=== PATIENT | male | born 1955 | race American Indian/Alaskan Native ===

== ENCOUNTER 2021-07-12 12:35 | Emergency (ER) | payer SELFPAY ==
[2021-07-12] MEDS ORDERED: cloNIDine 0.2 MG TAB PO ONE (13:57)
[2021-07-12 14:04] LABS: Basophils % (Auto) 0.4 % (0.0-1.8); Eosinophils # (Auto) 0.3 K/mm3 (0.0-0.4); Eosinophils % (Auto) 4.1 % (0.0-4.3); Hematocrit 41.7 % (35.5-45.6); Hemoglobin 14.2 gm/dl (11.8-15.2); Lymphocytes # (Auto) 2.1 K/mm3 (1.2-5.4); Lymphocytes % (Auto) 29.5 % (13.4-35.0); Mean Corpuscular HGB Conc 34 % (32-34); Mean Corpuscular Volume 96 fl (84-94); Monocytes # (Auto) 0.7 K/mm3 (0.0-0.8); Monocytes % (Auto) 9.9 % (0.0-7.3); Platelet Count 198 K/mm3 (140-440); Red Blood Count 4.34 M/mm3 (3.65-5.03); Red Cell Distribution Width 14.2 % (13.2-15.2)
--- NOTE | 2021-07-12 14:15 | Emergency Department Report ---
HPI - General Chief Complaint: Medical Clearance Time Seen by Provider: 07/12/21 13:57 - HPI HPI: MSE 6 The patient is a 65-year-old male present with a chief complaint of medical clearance. Patient was sent from [facility] for medical clearance to go to [facility]. [place] reports memory issues and hypertension and request a CT scan of the brain for "possible dementia." The patient currently denies having any complaints stating "I feel fine." Patient denies suicidal homicidal ideation. Patient denies auditory visual hallucinations. Patient states she has a history of hypertension but has not been on medication for years ED Past Medical Hx - Past Medical History Hx Hypertension: Yes - Surgical History Additional Surgical History: [place] tooth - Family History Family history: no significant - Social History Smoking Status: Current Every Day Smoker (1/2 pack/day) Substance Use Type: None (Denies illicit drug use) - Medications Home Medications: Home Medications Medication Instructions Recorded Confirmed Last Taken Type amLODIPine 5 mg PO DAILY #90 tab 07/12/21 Unknown Rx ED Review of Systems ROS: Stated complaint: MEDICAL CLEARENCE Other details as noted in HPI Constitutional: no symptoms reported Eyes: denies: eye pain ENT: denies: throat pain Respiratory: no symptoms reported Cardiovascular: denies: chest pain Endocrine: no symptoms reported Gastrointestinal: denies: abdominal pain Genitourinary: denies: dysuria Musculoskeletal: denies: back pain Neurological: denies: headache Physical Exam - Physical Exam Vital Signs: Vital Signs 07/12/21 13:10 Temperature 98.0 F Pulse Rate 95 H Respiratory 18 Rate Blood Pressure 212/119 O2 Sat by Pulse 96 Oximetry Physical Exam: GENERAL: The patient is well-developed well-nourished male sitting in chair not appearing to be in acute distress. [] HEENT: Normocephalic. Atraumatic. Extraocular motions are intact. Patient has moist mucous membranes. NECK: Supple. Trachea midline CHEST/LUNGS: Clear to auscultation. There is no respiratory distress noted. HEART/CARDIOVASCULAR: Regular. There is no tachycardia. There is no gallop rub or murmur. ABDOMEN: Abdomen is soft, nontender. Patient has normal bowel sounds. There is no abdominal distention. SKIN: There is no rash. There is no edema. There is no diaphoresis. NEURO: The patient is awake, alert, and oriented. The patient is cooperative. The patient has no focal neurologic deficits. The patient has normal speech. Cranial nerves II through XII grossly intact. GCS 15 MUSCULOSKELETAL:There is no evidence of acute injury. ED Course Vital Signs 07/12/21 13:10 Temperature 98.0 F Pulse Rate 95 H Respiratory 18 Rate Blood Pressure 212/119 O2 Sat by Pulse 96 Oximetry - Reevaluation(s) Reevaluation #1: 07/12/21 18:47 Blood pressure improved to systolic in the 160s ED Medical Decision Making - Lab Data Result diagrams: 07/12/21 13:34 07/12/21 13:34 - Radiology Data Radiology results: report reviewed (CT head), image reviewed (CT head) [facility] [address] [place] [address] Cat Scan Report Signed Patient: AMARJIT RIOS MR#: [id number] : 1955 Acct:[id number] Age/Sex: 65 / M ADM Date: 07/12/21 Loc: ED Attending Dr: Ordering Physician: THERESA CAMARA MD Date of Service: 07/12/21 Procedure(s): CT head/brain wo con Accession Number(s): [id number] cc: THERESA CAMARA MD CT HEAD WITHOUT CONTRAST INDICATION / CLINICAL INFORMATION: Hypertension," memory issues ". TECHNIQUE: Axial imaging performed from the skull apex through the skull base without the use of contrast. Sagittal and coronal reformatted images. All CT scans at this location are performed using CT dose reduction for ALARA by means of automated exposure control. COMPARISON: None available. FINDINGS: CEREBRAL PARENCHYMA: Mild cortical volume loss and mild chronic microangiopathy in the white matter is noted. 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 No acute parenchymal abnormality is detected. HEMORRHAGE: None. EXTRA-AXIAL SPACES: Normal in size and morphology for the patient's age. VENTRICULAR SYSTEM: Normal in size and morphology for the patient's age. MIDLINE SHIFT OR HERNIATION: None. CEREBELLUM / BRAINSTEM: No significant abnormality. CALVARIUM: No significant abnormality. ORBITS: Normal as visualized. PARANASAL SINUSES / MASTOID AIR CELLS: Normal as visualized. SOFT TISSUES of HEAD: No significant abnormality. ADDITIONAL FINDINGS: None. IMPRESSION: No acute intracranial abnormality. Chronic findings as described above. Signer Name: Geovanni Osborne Jr, MD Signed: 07/12/2021 2:33 PM Workstation Name: [id number] Transcribed By: TTR Dictated By: GEOVANNI OSBORNE JR, MD Electronically Authenticated By: GEOVANNI OSBORNE JR, MD Signed Date/Time: 07/12/211432 DD/ 31 TD/TT: - Differential Diagnosis Uncontrolled hypertension, intracranial mass, ICH, dementia Critical care attestation.: If time is entered above; I have spent that time in minutes in the direct care of this critically ill patient, excluding procedure time. ED Disposition Clinical Impression: Hypertension Disposition: HOME / SELF CARE / HOMELESS Is pt being admited?: No Does the pt Need Aspirin: No Instructions: Hypertension (ED) Additional Instructions: Dr. Seth Huber MD [address] [place], [place] [id number] [facility] [address] [phone] Dr. Froilan Hoyos MD [address] [id number] Mayte Navarro MD [address], [place], [place] [id number] [facility] [address] , [address], [place], [place] [id number] Professional and Agency Contacts To help [facility] Cr[facility](05/11) [place] Crisis Line: Suicide Prevention Line: Crisis Text Line: Text START to 698773 Emergency: 911 Outpatient [facility] Behavior[facility] Resources: [place]: [facility] [address] [place], [place] [address] [facility] - [address] [address] [facility] - [address] [place] [address] Saturday thru Saturday - 8am - 5pm [facility] Service Address: [address] [place] [address] Dr, [place] [address] [place]: [facility] Address: [address], [place], [place] Saturday thru Saturday- 7am-2pm [facility] Address: [address], [place] [address] Saturday thru Saturday: 8:30AM-5PM Prescriptions: amLODIPine 5 mg PO DAILY #90 tab Referrals: PRIMARY CAREMD [Primary Care Provider] - 3-5 Days SETH HUBER MD [Referring] - 3-5 Days Time of Disposition: 18:48
--- NOTE | 2021-07-12 14:37 | Cat Scan Report ---
CT HEAD WITHOUT CONTRAST INDICATION / CLINICAL INFORMATION: Hypertension," memory issues ". TECHNIQUE: Axial imaging performed from the skull apex through the skull base without the use of cont rast. Sagittal and coronal reformatted images. All CT scans at this location are performed using CT dose reduction for ALARA by means of automated exposure control. COMPARISON: None available. FINDINGS: CEREBRAL PARENCHYMA: Mild cortical volume loss and mild chronic microangiopathy in the white matter i s noted. 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 No acute p arenchymal abnormality is detected. HEMORRHAGE: None. EXTRA-AXIAL SPACES: Normal in size and morphology for the patient's age. VENTRICULAR SYSTEM: Normal in size and morphology for the patient's age. MIDLINE SHIFT OR HERNIATION: None. CEREBELLUM / BRAINSTEM: No significant abnormality. CALVARIUM: No significant abnormality. ORBITS: Normal as visualized. PARANASAL SINUSES / MASTOID AIR CELLS: Normal as visualized. SOFT TISSUES of HEAD: No significant abnormality. ADDITIONAL FINDINGS: None. IMPRESSION: No acute intracranial abnormality. Chronic findings as described above. Signer Name: Geovanni Osborne Jr, MD Signed: 07/12/2021 2:33 PM Workstation Name: [id number]
[2021-07-12 15:49] LABS: Alanine Aminotransferase 15 units/L (7-56); Albumin 4.1 g/dL (3.9-5); BUN/Creatinine Ratio 13; Blood Urea Nitrogen 14 mg/dL (9-20); Hemolysis Index 6
[2021-07-12 16:58] LABS: Amorphous Crystals,Urine 1+; Bilirubin,Urine NEG (Negative); Blood,Urine NEG (Negative); Color,Urine Yellow (Yellow); Mucus,Urine 2+ /HPF; Protein,Urine <15 mg/dL mg/dL (Negative); Urobilinogen,Urine < 2.0 mg/dL (<2.0)
[2021-07-12 17:10] LABS: Amphetamine Screen,Urine Negative; Benzodiazepines Screen,Urine Negative; Cannabinoid Screen,Urine Negative; Cocaine Screen,Urine Negative; Methadone Screen,Urine Negative; Opiate Screen,Urine Negative
[2021-07-12 18:53] VITALS: BP 164/92
== END 2021-07-12 19:12 | disposition home or self-care (01) ==
LOC: ED 12:35
DX: I10 Essential (primary) hypertension (principal); F17.200 Nicotine dependence, unspecified, uncomplicated; Z79.899 Other long term (current) drug therapy
CPT/HCPCS: 36415; 70450; 80053; 80307; 81001; 85025; 96374; 99284; J3490; 80320; G0480

== ENCOUNTER 2021-08-04 08:09 | Emergency (ER) | payer SELFPAY ==
[2021-08-04] MEDS ORDERED: cloNIDine 0.2 MG TAB PO ONE (09:00)
[2021-08-04] MEDS ORDERED: LIDOCAINE 1%/EPINEPHRINE 1:100,000 VIAL (20 ML) INFILTRATI ONE (09:01)
[2021-08-04] MEDS ORDERED: LIDOCAINE 2%/EPINEPHRINE 1:100,000 VIAL (20 ML) INFILTRATI ONE (09:09)
--- NOTE | 2021-08-04 09:15 | Emergency Department Report ---
HPI - General Chief Complaint: Extremity Problem,Nontraumatic Time Seen by Provider: 08/04/21 08:54 - HPI HPI: Patient is a 24-year-old male present with chief complaint of right knee pain. Patient states he developed pain and swelling in his right knee approximately 2 to 3 days ago. Patient denies any preceding trauma. Patient denies history of fever. Patient denies history of gout. Patient gives his pain a score greater than 10/10 ED Past Medical Hx - Past Medical History Hx Hypertension: Yes - Surgical History Additional Surgical History: [place] tooth - Family History Family history: no significant - Social History Smoking Status: Current Every Day Smoker (1/3 pack/day) Substance Use Type: None (Denies illicit drug use), Alcohol (Occasional) - Medications Home Medications: Home Medications Medication Instructions Recorded Confirmed Last Taken Type amLODIPine 5 mg PO DAILY #90 tab 07/12/21 Unknown Rx HYDROcodone/APAP 5-325 [[place] 1 - 2 each PO Q6HR PRN #10 tablet 08/04/21 Unknown Rx 5/325] Ibuprofen [Motrin 800 MG tab] 800 mg PO Q8HR PRN #20 tablet 08/04/21 Unknown Rx ED Review of Systems ROS: Stated complaint: LEG PAIN Other details as noted in HPI Constitutional: denies: fever Eyes: denies: eye pain ENT: denies: throat pain Respiratory: no symptoms reported Cardiovascular: denies: chest pain Endocrine: no symptoms reported Gastrointestinal: denies: abdominal pain Genitourinary: denies: dysuria Musculoskeletal: arthralgia Neurological: denies: headache Physical Exam - Physical Exam Vital Signs: Vital Signs 08/04/21 08/04/21 08:16 09:10 Temperature 98.7 F Pulse Rate 91 H 105 H Respiratory 17 20 Rate Blood Pressure 207/103 Blood Pressure 185/100 [Right] O2 Sat by Pulse 94 95 Oximetry Physical Exam: GENERAL: The patient is well-developed well-nourished male lying on stretcher not appearing to be in acute distress. [] HEENT: Normocephalic. Atraumatic. Extraocular motions are intact. Patient has moist mucous membranes. NECK: Supple. Trachea midline CHEST/LUNGS: Clear to auscultation. There is no respiratory distress noted. HEART/CARDIOVASCULAR: Regular. There is no tachycardia. There is no gallop rub or murmur. ABDOMEN: Abdomen is soft, nontender. Patient has normal bowel sounds. There is no abdominal distention. SKIN: There is no rash. There is no diaphoresis. NEURO: The patient is awake, alert, and oriented. The patient is cooperative. The patient has no focal neurologic deficits. The patient has normal speech. GCS 15 MUSCULOSKELETAL: There is a right knee effusion. There is tenderness palpation of the right knee. ED Course Vital Signs 08/04/21 08/04/21 08:16 09:10 Temperature 98.7 F Pulse Rate 91 H 105 H Respiratory 17 20 Rate Blood Pressure 207/103 Blood Pressure 185/100 [Right] O2 Sat by Pulse 94 95 Oximetry ED Medical Decision Making - Lab Data Laboratory Tests 08/04/21 Unknown Fluid Type Synovial Fluid Color Yellow Fluid Appearance Cloudy Fluid WBC 145 Fluid RBC 550 Synovial Crystals Negative - Radiology Data Radiology results: report reviewed (Right knee x-ray), image reviewed (Right knee x-ray) interpreted by me: Right knee x-ray-no acute fracture [facility] [place] [address] [place] [address] XRay Report Signed Patient: AMARJIT RIOS MR#: [id number] : 1955 A cct:[id number] Age/Sex: 65 / M ADM Date: 08/04/21 Loc: ED Attending Dr: Ordering Physician: THERESA CAMARA MD Date of Service: 08/04/21 Procedure(s): XR knee 3V RT Accession Number(s): [id number] cc: THERESA CAMARA MD Fluoro Time In Minutes: RIGHT KNEE 3 VIEW(S) INDICATION / CLINICAL INFORMATION: Pain and swelling COMPARISON: None available. FINDINGS: BONES / JOINT(S): No acute fracture or subluxation. There is mild narrowing of the knee joint spaces. There is moderate marginal osteophyte formation. There are small ossifications along the posterior aspect of the joint possibly representing loose bodies within the joint. SOFT TISSUES: There is an effusion in the suprapatella bursa. ADDITIONAL FINDINGS: None. IMPRESSION: 1. No fracture is seen. Degenerative changes are noted. There are possible small loose bodies within the posterior aspect of the knee joint. There is a knee joint effusion. Signer Name: Luis Walker MD Signed: 08/04/2021 9:37 AM Workstation Name: [id number] Transcribed By: SS Dictated By: Luis Walker MD Electronically Authenticated By: Luis Walker MD Signed Date/Time: 08/04/21936 DD/ 4 TD/TT: - Differential Diagnosis Knee effusion, osteoarthritis, gout, septic arthritis Critical care attestation.: If time is entered above; I have spent that time in minutes in the direct care of this critically ill patient, excluding procedure time. ED Disposition Clinical Impression: Effusion, right knee, Inflammatory arthritis Disposition: HOME / SELF CARE / HOMELESS Is pt being admited?: No Does the pt Need Aspirin: No Condition: Stable Instructions: Knee Effusion, [id number] Additional Instructions: Return to the emergency department should you develop worsening symptoms, inability to tolerate food or liquids, high fever or any other concerns Prescriptions: Ibuprofen [Motrin 800 MG tab] 800 mg PO Q8HR PRN #20 tablet PRN Reason: Pain, Moderate (4-6) HYDROcodone/APAP 5-325 [M[place] 5/325] 1 - 2 each PO Q6HR PRN #10 tablet PRN Reason: Pain Referrals: PRIMARY CARE, [Primary Care Provider] - 3-5 Days Time of Disposition: 13:59
--- NOTE | 2021-08-04 09:41 | XRay Report ---
RIGHT KNEE 3 VIEW(S) INDICATION / CLINICAL INFORMATION: Pain and swelling COMPARISON: None available. FINDINGS: BONES / JOINT(S): No acute fracture or subluxation. There is mild narrowing of the knee joint spaces. There is moderate marginal osteophyte formation. There are small ossifications along the posterior a spect of the joint possibly representing loose bodies within the joint. SOFT TISSUES: There is an effusion in the suprapatella bursa. ADDITIONAL FINDINGS: None. IMPRESSION: 1. No fracture is seen. Degenerative changes are noted. There are possible small loose bodies within the posterior aspect of the knee joint. There is a knee joint effusion. Signer Name: Luis Walker MD Signed: 08/04/2021 9:37 AM Workstation Name: [id number]
[2021-08-04 14:12] VITALS: BP 141/64
[2021-08-04 14:41] LABS: Total Cells Counted 100 /mm3
== END 2021-08-04 14:11 | disposition home or self-care (01) ==
LOC: ED 08:09
DX: M17.11 Unilateral primary osteoarthritis, right knee (principal); M25.461 Effusion, right knee; I10 Essential (primary) hypertension; F17.210 Nicotine dependence, cigarettes, uncomplicated; Z72.89 Other problems related to lifestyle
CPT/HCPCS: 85048; 89051; 99284; J3490